=== PATIENT | female | born 1935 | race Caucasian/White ===

== ENCOUNTER 2016-09-28 08:13 | Inpatient (IN) | payer MEDICARE, OTHER ==
[2016-09-24 13:28] LABS: BASOPHILS 0.3 %; BASOPHILS ABSOLUTE 0.02 10/3/uL (0.0-0.16); EOSINOPHILS 1.6 %; EOSINOPHILS ABSOLUTE 0.11 10/3/uL (0.0-0.53); HEMATOCRIT 40.1 % (36.0-48.0); HEMOGLOBIN 13.9 g/dL (12.0-16.0); IMMATURE GRANULOCYTES 0.1 %; IMMATURE GRANULOCYTES ABSOLUTE 0.01 10/3/uL (0.0-0.11); LYMPHOCYTES 20.8 %; LYMPHOCYTES ABSOLUTE 1.41 10/3/uL (0.67-4.30); MANUAL DIFF NO %; MEAN CORPUS HGB CONC 34.7 g/dL (32.0-36.0); MEAN CORPUSCULAR HEMOGLOB 32.4 pg (26.0-34.0); MEAN CORPUSCULAR VOLUME 93.5 fL (80-100); MEAN PLATELET VOLUME 9.1 fL (9.2-13.0); MONOCYTES ABSOLUTE 0.75 10/3/uL (0.21-1.20); NEUTROPHILS 66.2 %; NEUTROPHILS ABSOLUTE 4.49 10/3/uL (2.02-8.40); PLATELET COUNT 211 10/3/uL (150-400); RBC DISTRIBUTION WIDTH 13.9 % (12.0-16.0); RED CELL COUNT 4.29 10/6/uL (4.0-5.6); WHITE BLOOD CELLS 6.8 10/3/uL (4.5-10.5)
[2016-09-24 13:35] LABS: INTERNATIONAL NORMAL RATI 2.6 UNITS (-); PARTIAL THROMBO TIME 34.7 SEC (22.5-37.2); PROTIME (NOT ORD) 27.3 SEC (12.0-14.5)
[2016-09-24 13:46] LABS: A/G RATIO 1.4 (0.7-1.9); ALBUMIN 3.8 G/DL (3.5-5.0); ALKALINE PHOSPHATASE 83 U/L (45-117); BUN (BLOOD UREA NITROGEN) 12 MG/DL (6-23); CALCIUM, SERUM 8.5 MG/DL (8.5-10.4); CHLORIDE, SERUM 97 MMOL/L (96-112); CO2 (CARBON DIOXIDE) 29 MMOL/L (24-34); CREATININE 0.97 MG/DL (0.55-1.02); GFR AFRICAN AMERICAN 64 ML/MIN (>=60); GFR NON AFRICAN AMERICAN 56 ML/MIN (>=60); GLOBULIN 2.8 G/DL (2.5-4.1); GLUCOSE, SERUM 105 MG/DL (60-99); POTASSIUM, SERUM 4.7 MMOL/L (3.5-5.3); SGOT(AST) 18 U/L (5-40); SGPT(ALT) 22 U/L (5-65); SODIUM, SERUM 132 MMOL/L (135-148); TOTAL BILIRUBIN 0.7 MG/DL (0-1.2); TOTAL PROTEIN 6.6 G/DL (6.0-8.5)
[2016-09-24 14:37] LABS: ASCORBIC ACID (UR NOT ORDER) NEG (NEG); BILIRUBIN, URINE NEGATIVE (NEG); KETONE, URINE NEGATIVE (NEG); LEUKOCYTE ESTERASE(NOT OR SMALL (NEG); WBC (NOT ORDERED) (RFLEX) 26 (0-5)
--- NOTE | ~2016-09-28 | OP ---
Record Of Operation [facility] [address] [place]. 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 PROCEDURE: Right removal of deep implants and revision of total shoulder arthroplasty to reverse total shoulder arthroplasty with one stage glenoid bone grafting. COMPLICATIONS: None. ANESTHESIA: General endotracheal with regional block. ESTIMATED BLOOD LOSS: 200. FLUIDS: 1 L. IMPLANTS: Biomet glenosphere with Analisa BF stem. INDICATIONS: This is a 81-year-old female, did well from a left total shoulder arthroplasty. The right total shoulder done 3 years ago never did quite as well. She may have had an early subscap failure, but she worsened recently. There may have been some falls as well, but she presented with a loose glenoid, which had displaced posteriorly. We discussed revision. We discussed possible two stage procedure because of the glenoid deficiency, which was possible, and the patient verbalized understanding and wished to proceed with operative intervention. PROCEDURE IN DETAIL: The patient was induced in the supine position. She was taken to the beach-chair position with care to maintain the cervical lordosis. A time-out protocol was enforced. Ancef was administered. The prior deltopectoral incision was utilized. The scar was incised. The cephalic vein was ligated as it was entrapped in scar. We developed carefully a plane in the subdeltoid area, this was densely scarred in with grossly altered planes. We created a subdeltoid plane and placed a King retractor. The humeral head was completely anterior superiorly escaped and was resting against the coracoid. There was absolutely no subscap left, and we incised subperiosteally the rind of soft tissue down the medial calcar and allowed dislocation. We then removed the head and sent the rind around the head for high-power field analysis. There was no evidence of infection. We attempted to retain the stem. We turned our attention to the glenoid. The loose glenoid was removed. The glenohumeral joint was thoroughly debrided with a rongeur. We carefully made space anteriorly for a Bankart retractor and used a rongeur to remove all of the scar Record Of Operation [facility] [id number] [place]. [address] NAME: JOSE R CHEEMA : 37 STATUS : ADM IN PAT#: [id number] AGE: 81 ADM/REG DATE : 09/28/16 MR#: [id number] REPORT SERV DATE: 09/28/16 DICTATED BY: DIANA TEJADA DATE: 09/28/16 REPORT STATUS : Draft TRANSCRIBED BY: RAFAEL DATE: 09/28/16 tissue on the glenoid. There was about 50% efficiency of the glenoid, and mostly inferiorly, where the glenoid head fractured out the posterior cortex, we debrided that copiously and placed the mini-base plate somewhat higher than usual on the glenoid to achieve bone purchase. We then reamed and fashioned iliac crest graft to reconstitute the defect. We bone grafted the glenoid as well with cancellous allograft and impacted that and ran the reamer over the packed cancellous graft. We then impacted the mini-base plate. The 12 and 3 o'clock locking screws achieved excellent purchase and that bone was quite hard. The central screw did achieve purchase, but it was relatively poor and then the 9 o'clock screw did achieve purchase and there was relatively poor purchase on the 6 o'clock screw, but we were able to reconstruct the glenoid. We then selected the glenosphere between C and D offset. It was difficult to place the glenosphere trial with the stem still in position and this was a Analisa anatomical stem with an onlay type stem, and I was worried that this was going to be too much force to reduce especially with the glenoid deficiency, so we ended up doing an episiotomy and removing that stem with a slap hammer. This allowed direct access to the glenoid. We placed the glenosphere between C and D and reversed the offset to unload some of the forces and this was then impacted. We then did a trial reduction with a 0 poly BF Analisa stem and this was satisfactory. We selected a 10 stem. We placed cerclage wires and cemented the stem with Palacos standard cement watching for any extrusion. We then trialed a 03 and +6. We decided to go with a +6 repair of the soft tissues. Placed a Hemovac drain. We irrigated copiously. Closed the wounds in layers. The patient tolerated the procedure well and was taken to PACU in stable condition. POSTOPERATIVE PLAN: Elbow range of motion, pendulums only, sling for six weeks. BSS/MODL Diana Tejada M.D. / [id number] CC: Diana Tejada M.D.
[~2016-09-28 08:13] MED LIST: ASA5GR PO; ASAB PO; ATIVAN2 MG PO; CALTRA600D PO; CARASPUDL PO; CEFT5 PO; CELEBREX1 PO; CELEBREX2 PO; COLON HEALTH; CYMBALTA60 PO; ESTRACE1 MG PO; EZFE 200200 MG PO; FISH-EPA1000 MG PO; FLECAINIDE150 MG; IRON160 MG PO; JANTOVEN4 MG; L20 PO; LOP25 PO; LOP50 PO; LORTAB 5 PO; LORTAB10 PO; MSCONT15 PO; MSCONTIN PO; MULTIPLE VIT PO; NEXIUM40 PO; NORCO1 TAB PO; NORV5 PO; PERCOCET1 TA2 PO; PR25 PO; PRILOSEC40 MG PO; SPIRIVA INH; SYMBICORT 160/41 INH INH; SYN88 PO; TAMBO50 PO; VITAMIN D PO; VITAMIN D1000 UNI1 PO; WELLXL150 PO; ZOCOR20 PO; ZOLOFT PO; [UNRECOGNIZED DRUG - OTHER] PO; [UNRECOGNIZED DRUG - REMARK]; [UNRECOGNIZED DRUG - REMARK] PO
[2016-09-28 08:41] LABS: INTERNATIONAL NORMAL RATI 1.3 UNITS (-); PROTIME (NOT ORD) 15.7 SEC (12.0-14.5)
[2016-09-29 04:57] LABS: HEMOGLOBIN 11.2 g/dL (12.0-16.0)
[2016-09-29 04:58] LABS: HEMATOCRIT 32.9 % (36.0-48.0); INTERNATIONAL NORMAL RATI 1.5 UNITS (-); PROTIME (NOT ORD) 17.9 SEC (12.0-14.5)
[2016-09-29 05:04] LABS: BUN (BLOOD UREA NITROGEN) 14 MG/DL (6-23); CALCIUM, SERUM 8.2 MG/DL (8.5-10.4); CHLORIDE, SERUM 100 MMOL/L (96-112); CO2 (CARBON DIOXIDE) 27 MMOL/L (24-34); GFR AFRICAN AMERICAN 70 ML/MIN (>=60); GFR NON AFRICAN AMERICAN 61 ML/MIN (>=60); GLUCOSE, SERUM 119 MG/DL (60-99); POTASSIUM, SERUM 4.3 MMOL/L (3.5-5.3); SODIUM, SERUM 134 MMOL/L (135-148)
[2016-09-29] MEDS ORDERED: PERCOCET 7.5/321 TAB PO (11:30)
[2016-09-29] MEDS ORDERED: PR25 PO (11:31)
== END 2016-09-29 14:45 | disposition home or self-care (01) | DRG 483 ==
LOC: SDC/OF 08:13 → PACU 17:33 → 3SO 19:26
PROVIDERS: Orthopaedic Surgery Sports Medicine; Physician Assistant
PROC: 0RPJ0JZ Removal of Synthetic Substitute from Right Shoulder Joint, Open Approach (ICD-10-PCS; 2016-09-28)
PROC: 0RRJ00Z Replacement of Right Shoulder Joint with Reverse Ball and Socket Synthetic Substitute, Open Approach (ICD-10-PCS; principal; 2016-09-28 11:00)
DX: T84.098A Other mechanical complication of other internal joint prosthesis, initial encounter (principal); I48.92 Unspecified atrial flutter; I10 Essential (primary) hypertension; E78.5 Hyperlipidemia, unspecified; K21.9 Gastro-esophageal reflux disease without esophagitis; E03.9 Hypothyroidism, unspecified; F32.9 Major depressive disorder, single episode, unspecified; F41.9 Anxiety disorder, unspecified
CPT/HCPCS: 36415; 73030-RT; 80048; 80053; 81001; 85014; 85018; 85025; 85610; 85730; 86850; 86900; 86901; 87077; 87086; 87186; 87641; 88300; 88304; 88311; 88331; 88332; 93005; 94640; 97161-GP; A9270-GY; C1713; C1776; J0690; J1170; J2250; J2270; J2405; J2710; J2795; J3010